=== PATIENT | female | born 1995 | race African-American/Black ===

== ENCOUNTER 2017-08-04 09:29 | Emergency (ER) | payer MEDICAID, OTHER ==
[~2017-08-04] VITALS: Ht 162.6 cm; Wt 56.0 kg
[2017-08-04 09:41] VITALS: BP 121/57; PULSE 87; RESP 20; TEMP 98.1; O2SAT 99
--- NOTE | 2017-08-04 10:21 | PD ---
HPI Chief Complaint: Related Problem Time Seen by Provider: 09:54 Travel History International Travel<30 days: No Contact w/Intl Traveler<30days: No Traveled to known affect area: No History of Present Illness HPI This is a 22-year-old female who presents to the emergency department with brown discharge that started this morning, resolved, mild, with some mild cramping left lower quadrant abdominal pain but no fevers or chills. She is concerned because with her last order she had a short cervix and had to be on bedrest after 6 months. She has had an ultrasound in this which was normal and confirmed IUP. [facility] Past Medical History ?: LMP: APRIL 27, 2017 Social History Alcohol Use: No Tobacco Use: No Allergies-Medications (Allergen,Severity, Reaction): Coded Allergies: No Known Allergies (Unverified , 10/24/14) Review of Systems Except as stated in HPI: all other systems reviewed are Neg Physical Exam Narrative GENERAL:Well appearing, no acute distress SKIN: Focused skin assessment warm and dry. HEAD: Atraumatic. Normocephalic. EYES: Pupils equal and round. No injection or drainage. ENT: Moist mucous membranes NECK: Trachea midline. CARDIOVASCULAR: Regular rate and rhythm. No murmur appreciated. RESPIRATORY: Clear to auscultation. Breath sounds equal bilaterally. GASTROINTESTINAL: Abdomen soft, non-tender, nondistended. : White discharge in the vault with no blood, cervix is normal in appearance MUSCULOSKELETAL: No obvious deformities. NEUROLOGICAL: Awake and alert. No obvious cranial nerve deficits. Moving all extremities. PSYCHIATRIC: Appropriate mood and affect; insight and judgment normal. Data Data Last Documented VS Vital Signs Date Time Temp Pulse Resp B/P (MAP) Pulse Ox O2 Delivery O2 Flow Rate FiO2 08/04/17 10:14 80 18 08/04/17 09:41 98.1 121/57 (78) 99 Orders Orders Ed Poc Ultrasound (08/04/17 ) Wet Prep Profile (08/04/17 10:12) Gc And Chlamydia Pcr (08/04/17 10:12) Labs Laboratory Tests Test 08/04/17 10:22 Clue Cells (Wet Prep) PRESENT Vaginal Trichomonas (Wet Prep) NONE SEEN Vaginal Yeast (Wet Prep) NONE SEEN MDM Medical Decision Making Medical Screen Exam Complete: Yes Emergency Medical Condition: Yes Interpretation(s) Afebrile, no tachycardia, normotensive Clue cells are present Differential Diagnosis Threatened miscarriage, incomplete miscarriage, complete miscarriage, bacterial vaginosis Narrative Course This is a 22-year-old female who presents to the emergency department with some brown vaginal discharge this morning. She has a history of a shortened cervix with her prior . Bedside ultrasound was performed demonstrating an active fetus and a normal pelvic exam was performed which demonstrated no blood but a fair amount of vaginal discharge. Wet prep demonstrates clue cells. Patient will be treated with Flagyl for bacterial vaginosis and has a follow-up appointment with her certified nurse practitioner 2 days from now. I do not think any additional blood work is required as I do not appreciate any blood on the patient's exam her concern seem to be more abnormal discharge. Diagnosis Primary Impression: Bacterial vaginosis Patient Instructions: General Instructions Additional Instructions: If you develop severe abdominal pain, fever, persistent vomiting or inability to eat, heavy vaginal bleeding using more than one pad an hour, lightheadedness , dizziness, chest pain or shortness of breath return to the emergency department immediately. Followup with your certified nurse practitioner as soon as possible. Take Tylenol as needed for pain. Med/Other Pt SpecificInfo: Prescription(s) given Scripts Metronidazole (Flagyl) 500 Mg Tab 500 MG PO BID for Infection for 7 Days, #14 TAB 0 Refills Prov: Alysia Fuentes MD 08/04/17 Disposition: 01 DISCHARGE HOME Condition: Stable Alysia Fuentes MD Aug 04, 2017 10:21
[2017-08-04] MEDS ORDERED: METR-1 PO (11:23)
== END 2017-08-04 11:51 | disposition home or self-care (01) ==
LOC: NEPD 09:29
DX: O23.599 Infection of other part of genital tract in pregnancy, unspecified trimester (principal); N76.0 Acute vaginitis; B96.89 Other specified bacterial agents as the cause of diseases classified elsewhere
CPT/HCPCS: 87210; 99284

== ENCOUNTER 2017-11-11 06:01 | Inpatient (IN) ==
--- NOTE | 2017-11-11 06:58 | ED ---
History of Present Illness Primary Care Physician: No Primary Care Physician History of Present Illness: 22-year-old 2 para 1 at 28 weeks 2 days gestation who thought that she may have been having contractions for the past couple of hours. She denies any bleeding, vaginal discharge or leakage of fluid. Obstetrical history: She had 1 prior term vaginal delivery. During that she was followed for short cervix. She reports that she had ultrasound evaluation of her cervix 22 weeks during this which was reportedly normal. Review of Systems All other systems reviewed negative except as stated in [facility] - History History Provided By: Patient - Medical / Surgical Hx Neg / Unobtainable Medical Problems Denied: Yes Surgical History: No Previous Surgery - Medical History Medical History: Medical History (Last Updated 09/12/17 @ 14:01 by Dayne Gerardo) Patient denies medical problems - Social History I have reviewed the patient's Social History: Yes - Tobacco History Tobacco Use In Past 30 Days: No Smoking Status: Never smoker - Alcohol History How Often Do You Have a Drink Containing Alcohol: Never - Substance Use History Substance History: No History of Abuse - Travel History Recent Travel in the [place] Within the Last 8 Weeks: No Recent Travel Out of the Country Within the Last 8 Weeks: No Medications and Allergies Allergies Allergy/AdvReac Type Severity Reaction Status Date / Time No Known Allergies Allergy Verified 11/11/17 07:10 Home Medications Medication Instructions Recorded Confirmed Type No Known Home Medications 09/12/17 11/11/17 History Exam Vital signs: Vital Signs 11/11/17 06:22 11/11/17 06:25 Temperature 98.3 F Pulse Rate 86 88 Respiratory Rate 18 Blood Pressure 119/62 Narrative: GENERAL: Well-nourished, well-developed patient. SKIN: Warm and dry. HEAD: Normocephalic and atraumatic. EYES: No scleral icterus. No injection or drainage. ENT: No nasal drainage noted. Mucous membranes pink. Airway patent. NECK: Supple, trachea midline. No JVD. CARDIOVASCULAR: Regular rate and rhythm without murmurs, gallops, or rubs. RESPIRATORY: Breath sounds equal bilaterally. No accessory muscle use. ABDOMEN/GI: Abdomen soft, non-tender, bowel sounds present, no rebound, no guarding Gravid to [-] weeks size Fundal Height: [27-] GENITOURINARY: External Genitalia: intact and normal in appearance BUS glands: [neg-] Cervix: [-] Dilatation: [0-] Effacement: [-70] Station: [-3-] Presentation: [-] Membranes: [intact] Uterine Contractions: [irritability/q5-] FHT's: Category: [-1] Baseline: [150s-] Reactive: [-] Variability: [-mod] Decels: [-] EXTREMITIES: No cyanosis or edema. BACK: Nontender without obvious deformity. No CVA tenderness. NEUROLOGICAL: Awake and alert. Motor and sensory grossly within normal limits. Five out of 5 muscle strength in all muscle groups. Normal speech. Results - Labs Group B Strep: UA neg Assessment and Plan - Plan A: 28 wk IUP with ctxs and cervical shortening c/w PTL P: FFN, US for cervical length Addendum: FFN is neg., pt has clearly developed ctx pattern now and cervical length of 13mm with funneling. Prior study in second tri showed 41mm cvx lg. She will be admitted for PTL management. Indocin 50mg given at 910, Mg and steroids ordered. UDS, UA, GC, chlamydia, GBS-pcr Discharge Plan - Discharge Disposition Patient Disposition: 30 Still Patient - Physicians Team ED Provider: Pepe Watts Primary Care Provider: Primary Care Lainey Jarrett
[2017-11-11] MEDS ORDERED: Betamethasone Sod Phos/Acetate Inj 30 MG/5 ML Vial IM ONE (09:45)
--- NOTE | 2017-11-11 09:45 | P.HPOB ---
Patient Name: Maggie De Anda Date of : 89 Patient Status: Observation Attending Provider: Pepe Watts Date: 11/11/17 06:48 Initialization Date: 11/11/17 06:48 History of Present Illness Primary Care Physician: No Primary Care Physician History of Present Illness: 22-year-old 2 para 1 at 28 weeks 2 days gestation who thought that she may have been having contractions for the past couple of hours. She denies any bleeding, vaginal discharge or leakage of fluid. Obstetrical history: She had 1 prior term vaginal delivery. During that she was followed for short cervix. She reports that she had ultrasound evaluation of her cervix 22 weeks during this which was reportedly normal. Review of Systems All other systems reviewed negative [facility] - History History Provided By: Patient - Medical / Surgical Hx Neg / Unobtainable Medical Problems Denied: Yes Surgical History: No Previous Surgery - Medical History Medical History: Medical History (Last Updated 09/12/17 @ 14:01 by Dayne Gerardo) Patient denies medical problems - Social History I have reviewed the patient's Social History: Yes - Tobacco History Tobacco Use In Past 30 Days: No Smoking Status: Never smoker - Alcohol History How Often Do You Have a Drink Containing Alcohol: Never - Substance Use History Substance History: No History of Abuse - Travel History Recent Travel in the [place] Within the Last 8 Weeks: No Recent Travel Out of the Country Within the Last 8 Weeks: No Medications and Allergies Allergies Allergy/AdvReac Type Severity Reaction Status Date / Time No Known Allergies Allergy Verified 11/11/17 07:10 Home Medications Medication Instructions Recorded Confirmed Type No Known Home Medications 09/12/17 11/11/17 History Exam Vital signs: Vital Signs 11/11/17 06:22 11/11/17 06:25 Temperature 98.3 F Pulse Rate 86 88 Respiratory Rate 18 Blood Pressure 119/62 Narrative: GENERAL: Well-nourished, well-developed patient. SKIN: Warm and dry. HEAD: Normocephalic and atraumatic. EYES: No scleral icterus. No injection or drainage. ENT: No nasal drainage noted. Mucous membranes pink. Airway patent. NECK: Supple, trachea midline. No JVD. CARDIOVASCULAR: Regular rate and rhythm without murmurs, gallops, or rubs. RESPIRATORY: Breath sounds equal bilaterally. No accessory muscle use. ABDOMEN/GI: Abdomen soft, non-tender, bowel sounds present, no rebound, no guarding Gravid to [-] weeks size Fundal Height: [27-] GENITOURINARY: External Genitalia: intact and normal in appearance BUS glands: [neg-] Cervix: [-] Dilatation: [0-] Effacement: [-70] Station: [-3-] Presentation: [-] Membranes: [intact] Uterine Contractions: [irritability/q5-] FHT's: Category: [-1] Baseline: [150s-] Reactive: [-] Variability: [-mod] Decels: [-] EXTREMITIES: No cyanosis or edema. BACK: Nontender without obvious deformity. No CVA tenderness. NEUROLOGICAL: Awake and alert. Motor and sensory grossly within normal limits. Five out of 5 muscle strength in all muscle groups. Normal speech. Results - Labs Group B Strep: UA neg Assessment and Plan - Plan A: 28 wk IUP with ctxs and cervical shortening c/w PTL P: FFN, US for cervical length Addendum: FFN is neg., pt has clearly developed ctx pattern now and cervical length of 13mm with funneling. Prior study in second tri showed 41mm cvx lg. She will be admitted for PTL management. Indocin 50mg given at 910, Mg and steroids ordered. UDS, UA, GC, chlamydia, GBS-pcr Discharge Plan - Discharge Disposition Patient Disposition: 30 Still Patient - Physicians Team ED Provider: Pepe Watts Primary Care Provider: Primary Care Physici,Lainey
[2017-11-11 10:41] LABS: Amphetamine Urine With Conf Neg (Neg); Benzodiazepine Urine With Conf Neg (Neg)
[2017-11-11 10:55] LABS: Amphetamine Screen,Urine Neg (Neg); Barbiturate Screen,Urine Neg (Neg); Cannabinoid Screen,Urine Neg (Neg); Cocaine Screen,Urine Neg (Neg)
[2017-11-11] MEDS: Mag Sulf/Water 40 gm/1000 ml 40 GM/1,000 ML BAG IV.CONT SCH (10:57)
[2017-11-11] MEDS ORDERED: MAGNESIUM SULFATE IV.SIG ONE (11:00)
[2017-11-11] MEDS ORDERED: SODIUM CHLOR 0.9% IV.SIG ONE (11:00)
[2017-11-11] MEDS ORDERED: Mag Sulf/Water 4 gm/100 ml 100 ML IV.SIG ONE (11:00)
[2017-11-11 11:24] LABS: Baso % (Auto) 0.2 % (0.0-2.0); Eos % (Auto) 0.6 % (0.0-4.0); Hemoglobin 11.7 gm/dL (11.6-15.3); Lymph # (Auto) 1.1 th/mm3 (1.0-4.8); Lymph % (Auto) 14.3 % (9.0-44.0); Mean Corpuscular HGB Conc 33.4 % (32.0-36.0); Mean Corpuscular Hemoglobin 28.4 pg (27.0-34.0); Mean Platelet Volume 9.9 fL (7.0-11.0); Mono # (Auto) 0.6 th/mm3 (0.0-0.9); Neut # (Auto) 6.1 th/mm3 (1.8-7.7); Neut % (Auto) 77.9 % (16.0-70.0); Platelet Count 139 th/mm3 (150-450); Red Blood Count 4.12 mil/mm3 (4.00-5.30); Red Cell Distribution Width 13.6 % (11.6-17.2); White Blood Count 7.8 th/mm3 (4.0-11.0)
[2017-11-11 11:24] LABS: Opiate Screen,Urine Neg (Neg)
[2017-11-11 11:40] LABS: Anion Gap 7 meq/L (5-15); Blood Urea Nitrogen 8 mg/dL (7-18); Calcium 8.4 mg/dL (8.5-10.1); Carbon Dioxide 24.2 meq/L (21.0-32.0); Chloride 106 meq/L (98-107); Glomerular Filtration Rate Greater Than 89 mL/min (>89); Glucose,Random 77 mg/dL (74-106); Potassium 4.2 meq/L (3.5-5.1); Sodium 137 meq/L (136-145)
[2017-11-11] MEDS: Indomethacin 25 MG Capsule PO SCH ×3 (13:03→21:27)
[2017-11-11] MEDS ORDERED: PENICILLIN POTASSIUM IM ONE (21:28)
[2017-11-11] MEDS ORDERED: Penicillin G Potassium Inj 5,000,000 UNIT in Sodium Chloride 0.9% Inj 100 ML IV.SIG ONE (22:07)
[2017-11-12] MEDS: Indomethacin 25 MG Capsule PO SCH ×4 (00:43→13:02)
[2017-11-12] MEDS ORDERED: Penicillin G Potassium Inj 2,500,000 UNIT in Sodium Chlor 0.9% Inj 100 ML IV.SIG SCH (02:00)
[2017-11-12] MEDS: Penicillin G Potassium Inj 2,500,000 UNIT in Sodium Chlor 0.9% Inj 100 ML IV.SIG SCH ×3 (02:04→09:54)
[2017-11-12] MEDS: Mag Sulf/Water 40 gm/1000 ml 40 GM/1,000 ML BAG IV.CONT SCH (07:11)
--- NOTE | 2017-11-12 09:40 | P.OBANTE ---
Subjective Interval History: 22-year-old female, at 28 weeks 3 days, presents with shortened cervix and labor on 11/11. Patient seen and examined bedside this morning. Patient had 2 contractions overnight spread apart. Her contractions have greatly decreased and her pain has greatly decreased. She no longer feels any abdominal pressure. Denies any leakage of fluid. No vaginal bleeding. Baby is moving. No acute events overnight. Antepartum ROS: Reports: movement normal Denies: New complaints, Loss of fluid, Vaginal bleeding Objective Vital Signs and I&O: Vital Signs 11/11/17 09:40 11/11/17 10:45 11/11/17 11:00 Temperature Pulse Rate 94 H 82 102 H Respiratory Rate 17 16 Blood Pressure 125/88 11/11/17 11:12 11/11/17 11:15 11/11/17 11:45 Temperature Pulse Rate 87 82 Respiratory Rate 16 16 Blood Pressure 106/49 L 113/46 L 11/11/17 13:00 11/11/17 13:20 11/11/17 13:55 Temperature Pulse Rate 85 96 H 105 H Respiratory Rate 17 Blood Pressure 107/45 L 115/62 11/11/17 14:35 11/11/17 15:00 11/11/17 15:18 Temperature 97.9 F Pulse Rate 104 H 105 H 104 H Respiratory Rate 17 17 Blood Pressure 117/69 112/54 L 11/11/17 15:55 11/11/17 16:45 11/11/17 18:00 Temperature Pulse Rate 104 H 107 H 105 H Respiratory Rate 17 Blood Pressure 116/54 L 109/48 L 11/11/17 18:20 11/11/17 18:22 11/11/17 19:30 Temperature Pulse Rate 107 H 105 H Respiratory Rate 16 Blood Pressure 113/43 L 110/50 L 11/11/17 20:55 11/11/17 21:30 11/11/17 22:05 Temperature 97.4 F L Pulse Rate 103 H 104 H 117 H Respiratory Rate 18 Blood Pressure 103/38 L 106/48 L 11/11/17 23:10 11/11/17 23:30 11/12/17 00:45 Temperature 97.7 F Pulse Rate 110 H 109 H Respiratory Rate 18 18 Blood Pressure 113/52 L 105/49 L 11/12/17 01:15 11/12/17 02:00 11/12/17 03:00 Temperature Pulse Rate 100 H 96 H 100 H Respiratory Rate 18 Blood Pressure 104/46 L 105/59 L 110/51 L 11/12/17 04:00 11/12/17 04:05 11/12/17 04:53 Temperature 97.5 F L Pulse Rate 96 H Respiratory Rate 18 18 Blood Pressure 106/44 L 11/12/17 05:20 11/12/17 06:00 11/12/17 07:05 Temperature Pulse Rate 94 H 95 H 94 H Respiratory Rate 18 Blood Pressure 114/51 L 96/39 L 97/39 L 11/12/17 07:10 11/12/17 07:25 11/12/17 07:55 Temperature Pulse Rate 106 H 101 H 102 H Respiratory Rate Blood Pressure 113/49 L 11/12/17 08:25 Temperature Pulse Rate 111 H Respiratory Rate Blood Pressure Intake & Output 11/11/17 11/12/17 11/12/17 18:59 06:59 18:59 Intake Total 1000 / 1000 100 / 100 1000 / 1000 Balance 1000 / 1000 100 / 100 1000 / 1000 Intake: IV 1000 / 1000 100 / 100 1000 / 1000 LR 1000 mL Inj 1,000 ML @ 125 1000 / 1000 mls/hr IV.CONT .Q8H DOYLE Rx#: [id number] Magnesium Sulfate/Water 40 gm/ 1000 / 1000 1000 ml Premix 40 gm In 1,000 ml @ 2 GM/HR 50 mls/hr IV.CONT Q24H DOYLE Rx#:[id number] Pfizerpen-G Inj 2,500,000 UNIT 100 / 100 In NS Inj 100 ML @ 200 mls/hr IV.SIG Q4H DOYLE Rx#:[id number] Lab and Micro Results: Laboratory Results - last 24 hr 11/11/17 11/11/17 11/11/17 06:25 06:25 09:42 WBC 7.8 RBC 4.12 Hgb 11.7 Hct 35.0 MCV 85.0 MCH 28.4 MCHC 33.4 RDW 13.6 Plt Count 139 L MPV 9.9 Neut % (Auto) 77.9 H Lymph % (Auto) 14.3 Barry % (Auto) 7.0 Eos % (Auto) 0.6 Baso % (Auto) 0.2 Neut # (Auto) 6.1 Lymph # (Auto) 1.1 Barry # (Auto) 0.6 Eos # (Auto) 0.0 Baso # (Auto) 0.0 WBC Differential . Differential Comment Auto diff final Sodium Potassium Chloride Carbon Dioxide Anion Gap BUN Creatinine Estimated GFR Random Glucose Calcium Magnesium Urine Opiates Screen Neg Ur Barbiturates Screen Neg Ur Amphetamine Screen Neg Ur Amphetamines Screen U Benzodiazepines Scrn Neg Urine Cocaine Screen Neg U Cannabinoids Screen Neg Chlam trachomat DNA PCR Not detected N.gonorrhoeae DNA (PCR) Not detected Group B Strep (PCR) 11/11/17 11/11/17 11/11/17 09:42 10:20 10:25 WBC RBC Hgb Hct MCV MCH MCHC RDW Plt Count MPV Neut % (Auto) Lymph % (Auto) Barry % (Auto) Eos % (Auto) Baso % (Auto) Neut # (Auto) Lymph # (Auto) Barry # (Auto) Eos # (Auto) Baso # (Auto) WBC Differential Differential Comment Sodium 137 Potassium 4.2 Chloride 106 Carbon Dioxide 24.2 Anion Gap 7 BUN 8 Creatinine 0.50 Estimated GFR Greater than 89 Random Glucose 77 Calcium 8.4 L Magnesium Urine Opiates Screen Neg Ur Barbiturates Screen Neg Ur Amphetamine Screen Ur Amphetamines Screen Neg U Benzodiazepines Scrn Neg Urine Cocaine Screen Neg U Cannabinoids Screen Neg Chlam trachomat DNA PCR N.gonorrhoeae DNA (PCR) Group B Strep (PCR) Positive 11/11/17 15:34 WBC RBC Hgb Hct MCV MCH MCHC RDW Plt Count MPV Neut % (Auto) Lymph % (Auto) Barry % (Auto) Eos % (Auto) Baso % (Auto) Neut # (Auto) Lymph # (Auto) Barry # (Auto) Eos # (Auto) Baso # (Auto) WBC Differential Differential Comment Sodium Potassium Chloride Carbon Dioxide Anion Gap BUN Creatinine Estimated GFR Random Glucose Calcium Magnesium 4.8 H Urine Opiates Screen Ur Barbiturates Screen Ur Amphetamine Screen Ur Amphetamines Screen U Benzodiazepines Scrn Urine Cocaine Screen U Cannabinoids Screen Chlam trachomat DNA PCR N.gonorrhoeae DNA (PCR) Group B Strep (PCR) Physical Exam: General: Well-nourished, well-developed, in no acute distress Skin: Intact, no rash present HEENT: Neck supple, no nodules appreciated Cardio: Regular rate and rhythm, no murmurs Respiratory: Clear to auscultation bilaterally, no wheezing, rales, crackles. Abdominal: Normal bowel sounds, soft, no uterine tenderness, no hardness on palpation EFM: baseline 140, no decelerations, moderate variability toco: no cxns on monitor Assessment and Plan - Diagnosis (1) Short cervical length during Code(s): O26.879 - Cervical shortening, unspecified trimester Status: Acute Plan: Cervical length of 13 mm with funneling, prior study showed 41 mm cervix length second trimester No signs of progressing labor EFM and toco If no further contractions or signs of labor, expect DC with pelvic rest for remainder of (2) contractions Code(s): O47.9 - False labor, unspecified Status: Acute Plan: labor management as below -Indomethacin 50 mg x1 -Indomethacin 25 mg every 4 hours -Terbutaline 0.25 mg subcu x1 -Betamethasone 12 mg every 24 hours, 1 dose completed -Continue magnesium, repleted times 24 hours at 11 AM No contractions overnight no further management needed Continue EFM and toco - Plan 22-year-old female, at 28 weeks 3 days, presents with shortened cervix and labor on 11/11. Discharge Planning: Pending no signs of labor, Will likely DC this afternoon after second dose of betamethasone and magnesium is completed. Case discussed with
[2017-11-12 10:58] VITALS: RESP 17
[2017-11-12] MEDS ORDERED: Betamethasone Sod Phos/Acetate Inj 30 MG/5 ML Vial IM ONE (11:00)
[2017-11-12 13:13] VITALS: TEMP 98.3
[2017-11-12 14:05] VITALS: BP 106/49
[2017-11-12 14:44] VITALS: PULSE 99
== END 2017-11-12 15:17 | disposition home or self-care (01) ==
LOC: H2E 06:01 → HOBED 06:01 → OBSVTOIN 09:15 → H2E 09:37
PROVIDERS: ADMIT Obstetrics & Gynecology; ATTEND Obstetrics & Gynecology

== ENCOUNTER 2018-01-28 06:33 | Inpatient (IN) ==
[2018-01-28] MEDS ORDERED: Naloxone Inj 0.4 MG/ML Vial IV.PUSH PRN ×2 (07:28→22:27)
[2018-01-28] MEDS ORDERED: Sod Chloride 0.9% Inj 1,000 ML IV.CONT PRN (07:28)
[2018-01-28] MEDS ORDERED: Oxytocin 30 Units/500ml Premix 30 UNITS/500 ML BAG IV.SIG ONE (07:28)
[2018-01-28] MEDS ORDERED: fentaNYL Citrate Inj 100 MCG/2 ML Ampul IV.PUSH PRN ×2 (07:28)
[2018-01-28] MEDS ORDERED: Sodium Chlor 0.9% Inj 500 ML IV.SIG PRN (07:28)
[2018-01-28] MEDS ORDERED: Citric Acid/Sodium Citrate Liq 30 ML UDC PO SCH (07:30)
[2018-01-28] MEDS ORDERED: Oxytocin 30 Units/500ml Premix 30 UNITS/500 ML BAG IV.SIG PRN ×2 (07:41→16:39)
[2018-01-28 08:05] LABS: Baso % (Auto) 0.2 % (0.0-2.0); Hematocrit 31.7 % (35.0-46.0); Lymph # (Auto) 1.7 th/mm3 (1.0-4.8); Lymph % (Auto) 34.7 % (9.0-44.0); Mean Corpuscular HGB Conc 34.6 % (32.0-36.0); Mean Corpuscular Hemoglobin 27.6 pg (27.0-34.0); Mean Corpuscular Volume 79.7 fL (80.0-100.0); Mean Platelet Volume 9.8 fL (7.0-11.0); Mono # (Auto) 0.5 th/mm3 (0.0-0.9); Mono % (Auto) 10.8 % (0.0-8.0); Neut # (Auto) 2.7 th/mm3 (1.8-7.7); Neut % (Auto) 53.3 % (16.0-70.0); Platelet Count 108 th/mm3 (150-450); Red Blood Count 3.97 mil/mm3 (4.00-5.30); Red Cell Distribution Width 14.3 % (11.6-17.2)
[2018-01-28 08:07] LABS: Amphetamine Urine With Conf Neg (Neg); Benzodiazepine Urine With Conf Neg (Neg); Bilirubin,Urine Negative (Negative); Clarity,Urine Clear (Clear); Cocaine Urine With Conf Neg (Neg); Color,Urine Yellow (Yellw/Straw); Glucose,Urine (UA) Negative (Negative); Leukocyte Esterase,Urine Negative (Negative); Mucus,Urine Few /lpf (Occasional); Nitrite,Urine Negative (Negative); Opiates Urine With Conf Neg (Neg); Specific Gravity,Urine 1.013 (1.002-1.035); Squamous Epithelial Cell,Urine 3 /hpf (0-5)
[2018-01-28 08:14] LABS: Cannabinoid Urine With Conf Neg (Neg)
[2018-01-28 08:20] LABS: Albumin 3.1 g/dL (3.4-5.0); Anion Gap 10 meq/L (5-15); Aspartate Aminotransferase 15 U/L (15-37); Blood Urea Nitrogen 6 mg/dL (7-18); Calcium 8.7 mg/dL (8.5-10.1); Carbon Dioxide 20.3 meq/L (21.0-32.0); Chloride 109 meq/L (98-107); Glomerular Filtration Rate Greater Than 89 mL/min (>89); Glucose,Random 94 mg/dL (74-106); Potassium 3.9 meq/L (3.5-5.1); Sodium 139 meq/L (136-145)
[2018-01-28 08:25] LABS: Alanine Aminotransferase 13 U/L (10-53); Alkaline Phosphatase 102 U/L (45-117); Total Protein 6.8 g/dL (6.4-8.2)
--- NOTE | 2018-01-28 08:53 | P.HPOB ---
History of Present Illness Primary Care Physician: UNKNOWN Chief Complaint: IOL History of Present Illness: 22 yr old at 39/3 here for induction of labor secondary to gestational diabetes, diet controlled. Pt had a previous history with no issues, delivered vaginal, baby weighted 6lbs. Pt denies medical problems. During this pt had no other complications. Baby's last EFW was 6lbs at 36 WGA. PMH: none PSHx: none Social: denies smoking, nobody smokes in the house, denies drinking, no recreational drug use. Medications: vitamins Allergies: None Weeks Gestation:: 39 Para: 1 : 2 - Inpatient Certification I certify that the inpatient services were ordered in accordance with Medicare regulations governing the order. This includes certification that hospital inpatient services are reasonable and necessary and in the case of services not specified as inpatient-only under 42 CFR 419.22(n), that they are appropriately provided as inpatient services in accordance to with the 2-midnight benchmark under 43 CFR 412.3(e) Estimated Total Length of Stay (Days): 3 Plans for Post Hospital Care: Home Review of Systems Constitutional: Denies headache(s) Cardiovascular: Denies chest pain Respiratory: Denies shortness of breath Genitourinary: Denies urinary urgency, Denies vaginal discharge PMFSH - History History Provided By: Patient - Medical / Surgical Hx Neg / Unobtainable Medical Problems Denied: Yes Surgical History: No Previous Surgery - Medical History Medical History: Medical History (Last Reviewed 01/28/18 @ 08:49 by Mary Anne Thornton MD, R1 ) Gestational diabetes Patient denies medical problems - Family History Family History: Family History (Last Reviewed 01/28/18 @ 08:49 by Mary Anne Thornton MD, R1 ) Other No significant family history - Social History I have reviewed the patient's Social History: Yes - Tobacco History Second Hand Smoke Exposure: No Tobacco Use In Past 30 Days: No Smoking Status: Never smoker - Alcohol History How Often Do You Have a Drink Containing Alcohol: Never - Substance Use History Substance History: No History of Abuse - Travel History Recent Travel in the [facility] Within the Last 8 Weeks: No Recent Travel Out of the Country Within the Last 8 Weeks: No Medications and Allergies Active Medications: Active Medications Citric Acid/Sodium Citrate (Sodium Citrate/Citric Acid Liq) 30 ml PO [facility]PRENT[facility] DOYLE Stop: 02/01/18 07:29 Fentanyl Citrate (Fentanyl Inj) 50 mcg IV.PUSH Q1H PRN PRN Reason: Pain Scale 3 - 5 Fentanyl Citrate (Fentanyl Inj) 100 mcg IV.PUSH Q1H PRN PRN Reason: PAIN SCALE 6 TO 10 Lactated Ringer's (Lr 1000 Ml Inj) 1,000 mls @ 3,000 mls/hr IV.SIG UNSCH PRN PRN Reason: compromise or epidural Lactated Ringer's (Lr 1000 Ml Inj) 1,000 mls @ 125 mls/hr IV.CONT .Q8H DOYLE Last Admin: 01/28/18 07:45 Dose: 125 mls/hr Sodium Chloride (Ns Inj) 500 mls @ 1,000 mls/hr IV.SIG UNSCH PRN PRN Reason: SEE LABEL COMMENTS Sodium Chloride (Ns Inj) 1,000 mls @ 100 mls/hr IV.CONT .Q10H PRN PRN Reason: SEE LABEL COMMENTS Oxytocin (Pitocin 30 Units/Ns 500 Ml Premix) 30 units in 500 mls @ 2 mls/hr IV.SIG TITRATE PRN; Protocol PRN Reason: For induction of labor Last Admin: 01/28/18 07:53 Dose: 2 milliunit/min, 2 mls/hr Lidocaine HCl (Xylocaine 1% Inj) 0.1 ml I-DERMAL PRN PRN PRN Reason: For IV start Stop: 01/31/18 07:27 Lidocaine HCl (Xylocaine 1% Inj) 10 ml INFILTRATN PRN PRN PRN Reason: For episiotomy repair Stop: 01/30/18 07:27 Mineral Oil (Muri-Lube Oil) 10 ml TOPICAL PRN PRN PRN Reason: PRN perineal massage Naloxone HCl (Narcan Inj) 0.1 mg IV.PUSH Q2M PRN PRN Reason: for opiate reversal Allergies Allergy/AdvReac Type Severity Reaction Status Date / Time No Known Allergies Allergy Verified 01/28/18 07:16 Home Medications Medication Instructions Recorded Confirmed Type No Known Home Medications 09/12/17 11/11/17 History 01/28/18 History Exam Vital signs: Vital Signs 01/28/18 06:54 01/28/18 07:15 01/28/18 07:59 Temperature 98.0 F Pulse Rate 74 93 H Respiratory Rate 17 18 Blood Pressure 116/77 108/59 L 01/28/18 08:00 Temperature Pulse Rate Respiratory Rate 17 Blood Pressure Intake & Output 01/27/18 01/28/18 01/28/18 18:59 06:59 18:59 Weight 72.575 kg Narrative: GENERAL: Well-nourished, well-developed patient. SKIN: Warm and dry. HEAD: Normocephalic and atraumatic. EYES: No scleral icterus. No injection or drainage. ENT: No nasal drainage noted. Mucous membranes pink. Airway patent. CARDIOVASCULAR: Regular rate and rhythm without murmurs, gallops, or rubs. RESPIRATORY: Breath sounds equal bilaterally. No accessory muscle use. ABDOMEN/GI: Abdomen soft, non-tender, bowel sounds present, no rebound, no guarding Gravid to 39 weeks size GENITOURINARY: External Genitalia: intact and normal in appearance BUS glands: normal Cervix: anterior Dilatation: 3 cm Effacement: 40-50% Station: -3 Presentation: Vertex Membranes: ruptured Uterine Contractions: present FHT's: Category: 1 Baseline: 140 Reactive: yes Variability: moderate Decels: absent EXTREMITIES: No cyanosis or edema. BACK: Nontender without obvious deformity. No CVA tenderness. NEUROLOGICAL: Awake and alert. Motor and sensory grossly within normal limits. Normal speech. Results - Labs CBC & Chem 7: 01/28/18 07:11 01/28/18 07:11 Labs: Laboratory Results - last 24 hr 01/28/18 01/28/18 01/28/18 06:45 06:45 07:11 WBC 5.0 RBC 3.97 L Hgb 11.0 L Hct 31.7 L MCV 79.7 L MCH 27.6 MCHC 34.6 RDW 14.3 Plt Count 108 L MPV 9.8 Neut % (Auto) 53.3 Lymph % (Auto) 34.7 Buchanan % (Auto) 10.8 H Eos % (Auto) 1.0 Baso % (Auto) 0.2 Neut # (Auto) 2.7 Lymph # (Auto) 1.7 Buchanan # (Auto) 0.5 Eos # (Auto) 0.0 Baso # (Auto) 0.0 WBC Differential . Differential Comment Auto diff final Sodium Potassium Chloride Carbon Dioxide Anion Gap BUN Creatinine Estimated GFR Random Glucose Calcium Total Bilirubin AST ALT Alkaline Phosphatase Total Protein Albumin Urine Color Yellow Urine Clarity Clear Urine pH 6.0 Ur Specific Arley 1.013 Urine Protein Negative Urine Glucose (UA) Negative Urine Ketones Negative Urine Occult Blood Negative Urine Nitrate Negative Urine Bilirubin Negative Urine Urobilinogen Less than 2 Ur Leukocyte Esterase Negative Urine RBC Less than 1 Urine WBC 1 Ur Squamous Epith Cells 3 Urine Mucus Few H Micro UA Comment Culture not ind Ur Microscopic Review Not Reportable Urine Culture Comments Culture not ind Urine Opiates Screen Neg Ur Barbiturates Screen Neg Ur Amphetamine Screen Neg U Benzodiazepines Scrn Neg Urine Cocaine Screen Neg U Cannabinoids Screen Neg Blood Type Blood Type Recheck 01/28/18 01/28/18 07:11 07:11 WBC RBC Hgb Hct MCV MCH MCHC RDW Plt Count MPV Neut % (Auto) Lymph % (Auto) Buchanan % (Auto) Eos % (Auto) Baso % (Auto) Neut # (Auto) Lymph # (Auto) Buchanan # (Auto) Eos # (Auto) Baso # (Auto) WBC Differential Differential Comment Sodium 139 Potassium 3.9 Chloride 109 H Carbon Dioxide 20.3 L Anion Gap 10 BUN 6 L Creatinine 0.70 Estimated GFR Greater than 89 Random Glucose 94 Calcium 8.7 Total Bilirubin 0.5 AST 15 ALT 13 Alkaline Phosphatase 102 Total Protein 6.8 Albumin 3.1 L Urine Color Urine Clarity Urine pH Ur Specific Arley Urine Protein Urine Glucose (UA) Urine Ketones Urine Occult Blood Urine Nitrate Urine Bilirubin Urine Urobilinogen Ur Leukocyte Esterase Urine RBC Urine WBC Ur Squamous Epith Cells Urine Mucus Micro UA Comment Ur Microscopic Review Urine Culture Comments Urine Opiates Screen Ur Barbiturates Screen Ur Amphetamine Screen U Benzodiazepines Scrn Urine Cocaine Screen U Cannabinoids Screen Blood Type AB Positive Blood Type Recheck Required Caprini VTE Risk Assessment Caprini VTE Risk Assessment: No/Low Risk (score <= 1) Caprini Risk Assessment Model: Point Value = 1 Point Value = 2 Point Value = 3 Point Value = 5 Age 41-60 Minor surgery BMI > 25 kg/m2 Swollen legs Varicose veins or History of unexplained or recurrent spontaneous Oral contraceptives or hormone replacement Sepsis (< 1 month) Serious lung disease, including pneumonia (< 1 month) Abnormal pulmonary function Acute myocardial infarction Congestive heart failure (< 1 month) History of inflammatory bowel disease Medical patient at bed rest Age 61-74 Arthroscopic surgery Major open surgery (> 45 min) Laparoscopic surgery (> 45 min) Malignancy Confined to bed (> 72 hours) Immobilizing plaster cast Central venous access Age >= 75 History of VTE Family history of VTE Factor V Leiden Prothrombin [id number] Lupus anticoagulant Anticardiolipin antibodies Elevated serum homocysteine Heparin-induced thrombocytopenia Other congenital or acquired thrombophilia Stroke (< 1 month) Elective arthroplasty Hip, pelvis, or leg fracture Acute spinal cord injury (< 1 month) Prophylaxis Regimen: Total Risk Factor Score Risk Level Prophylaxis Regimen 0-1 Low Early ambulation 2 Moderate Order ONE of the following: *Sequential Compression Device (SCD) *Heparin 5000 units SQ BID 3-4 Higher Order ONE of the following medications: *Heparin 5000 units SQ TID *Enoxaparin/Lovenox 40 mg SQ daily (WT < 150 kg, CrCl > 30 mL/min) *Enoxaparin/Lovenox 30 mg SQ daily (WT < 150 kg, CrCl > 10-29 mL/min) *Enoxaparin/Lovenox 30 mg SQ BID (WT < 150 kg, CrCl > 30 mL/min) AND/OR *Sequential Compression Device (SCD) 5 or more Highest Order ONE of the following medications: *Heparin 5000 units SQ TID (Preferred with Epidurals) *Enoxaparin/Lovenox 40 mg SQ daily (WT < 150 kg, CrCl > 30 mL/min) *Enoxaparin/Lovenox 30 mg SQ daily (WT < 150 kg, CrCl > 10-29 mL/min) *Enoxaparin/Lovenox 30 mg SQ BID (WT < 150 kg, CrCl > 30 mL/min) AND *Sequential Compression Device (SCD) Assessment and Plan - Diagnosis (1) Encounter for induction of labor Code(s): Z34.90 - Encounter for supervision of normal , unspecified, unspecified trimester Status: Acute (2) Gestational diabetes Code(s): O24.419 - Gestational diabetes mellitus in , unspecified control Status: Acute (3) 39 weeks gestation of Code(s): Z3A.39 - 39 weeks gestation of Status: Acute - Plan 22 yr old female admitted for IOL secondary to gestational diabetes. Plan: - Admit to L&D - Pitocin for IOL - Anticipate vaginal delivery Pt seen and discussed with Dr. Swanson and Dr. Márquez
[2018-01-28] MEDS ORDERED: Dextrose 50% in Water 50 ML Vial IV.PUSH PRN (11:23)
[2018-01-28] MEDS ORDERED: fentaNYL 2MCG-Bupiv 0.125% Epi 150 ML EPIDURAL ONE (12:55)
[2018-01-28] MEDS ORDERED: fentaNYL Citrate Inj 100 MCG/2 ML Ampul EPIDURAL ONE (13:32)
[2018-01-28] MEDS ORDERED: fentaNYL 2MCG-Bupiv 0.125% Epi 150 ML EPIDURAL PRN (13:32)
[2018-01-28] MEDS ORDERED: Diphtheria/Tetanus/Pertussis Vaccine Inj 0.5 ML Syringe IM ONE (16:00)
[2018-01-28] MEDS ORDERED: Measles/Mumps/Rubella Vaccine Inj 0.5 ML Vial SQ ONE (16:00)
--- NOTE | 2018-01-28 19:31 | P.OBGPN ---
Earlier patient seen and evaluated this is a late entry- Exam was 6 cm at the time/ position the suture lines are occiput transverse with adequate maternal pelvis, and plan to initiate oxytocin. MD was subsequently called heart rate deceleration noted-when this occurred intrauterine resuscitation Pitocin was turned off which was at 1 milliunit IV fluid resuscitation change of maternal position and a scalp electrode was placed after counseling services manager. status is now found to be reassuring patient has progressed to 7-8 cm. We will continue to monitor maternal status closely. Anticipate
[2018-01-28] MEDS ORDERED: Lidocaine 1% Inj 50 ML Vial ONE (22:00)
[2018-01-28] MEDS ORDERED: Oxytocin 30 Units/500ml Premix 30 UNITS/500 ML BAG IV.CONT PRN (22:27)
[2018-01-28] MEDS ORDERED: Acetaminophen 325 MG Tablet PO PRN (22:27)
[2018-01-28] MEDS ORDERED: Witch Hazel 50%/Glyderin 12.5% 40 Pad Jar RECTAL PRN (22:27)
[2018-01-28] MEDS ORDERED: Bisacodyl 10 MG Supp RECTAL PRN (22:27)
[2018-01-28] MEDS ORDERED: Benzocaine 20% Top Spray 60 ML Can TOPICAL PRN (22:27)
[2018-01-28] MEDS ORDERED: Zolpidem Tartrate 5 MG Tablet PO PRN (22:27)
--- NOTE | 2018-01-28 22:36 | P.OBDELI ---
Weeks Gestation: 39 Patient Started Active Labor: No Medical Induction of Labor: Yes Artificial Rupture of Membrane: Yes Anesthesia: Epidural Episiotomy: none Vaginal Delivery: Normal Presentation: Occiput anterior Nuchal Cord: None Delayed Cord Clamping (45 sec): Yes Placenta: Spontaneous delivery Laceration: None : Female Infant Weight: 3675 kg score (1 min): 8 score (5 min): 9 Additional Information: Delivery of the vertex left hand presenting and below maternal pubis, subsequently rotated vertex after left hand reduced and no longer under maternal pubis hand now facing maternal rectum-with maternal efforts delivery without incident. Cord gases obtained
--- NOTE | 2018-01-29 08:12 | P.PNOB ---
Subjective Interval history: 22 year old female s/p at 39 wks gestation, PPD1. AFVSS. Patient reports she is feeling well. Bleeding is decreasing and pain is well- controlled. She is breast feeding and bonding well with baby. Ambulating without difficulties. She is tolerating a diet without nausea or vomiting. She has not had a bowel movement. She has not passed gas. Denies chest pain, dysuria , shortness of breath, or calf pain. Objective Vital Signs/I&O: Vital Signs 01/28/18 08:30 01/28/18 09:00 01/28/18 09:30 Temperature Pulse Rate Respiratory Rate 17 18 18 Blood Pressure 01/28/18 10:00 01/28/18 10:15 01/28/18 10:56 Temperature 98.3 F Pulse Rate 95 H 84 Respiratory Rate 17 18 Blood Pressure 109/61 117/64 01/28/18 12:10 01/28/18 13:16 01/28/18 13:30 Temperature Pulse Rate 76 107 H 108 H Respiratory Rate 18 Blood Pressure 106/48 L 124/64 113/53 L 01/28/18 13:35 01/28/18 14:10 01/28/18 14:22 Temperature Pulse Rate 96 H 98 H 106 H Respiratory Rate 18 Blood Pressure 123/69 101/58 L 104/54 L 01/28/18 14:30 01/28/18 15:00 01/28/18 16:00 Temperature 97.9 F Pulse Rate 90 98 H 98 H Respiratory Rate Blood Pressure 102/52 L 118/64 123/53 L 01/28/18 16:30 01/28/18 16:38 01/28/18 18:00 Temperature Pulse Rate 91 H 104 H 96 H Respiratory Rate Blood Pressure 107/59 L 121/62 109/69 01/28/18 18:15 01/28/18 19:00 01/28/18 19:10 Temperature Pulse Rate 92 H Respiratory Rate 18 18 Blood Pressure 123/63 01/28/18 19:15 01/28/18 19:30 01/28/18 19:33 Temperature 99.0 F Pulse Rate 96 H Respiratory Rate 18 Blood Pressure 114/66 01/28/18 20:00 01/28/18 20:01 01/28/18 20:42 Temperature Pulse Rate 97 H 99 H Respiratory Rate 18 18 Blood Pressure 122/71 118/69 12/11/18 21:12 01/28/18 21:15 01/28/18 21:32 Temperature 99.4 F Pulse Rate 104 H 105 H Respiratory Rate 18 Blood Pressure 123/61 122/76 01/28/18 22:20 01/28/18 22:31 01/28/18 22:49 Temperature Pulse Rate 109 H 103 H 102 H Respiratory Rate 18 Blood Pressure 119/71 119/73 128/70 01/28/18 23:03 01/28/18 23:05 01/28/18 23:35 Temperature Pulse Rate 98 H 102 H Respiratory Rate 18 18 18 Blood Pressure 127/72 121/62 01/29/18 00:20 01/29/18 07:52 Temperature 97.9 F 97.9 F Pulse Rate 96 H 90 Respiratory Rate 18 20 Blood Pressure 118/69 117/70 Intake & Output 01/28/18 01/29/18 01/29/18 18:59 06:59 18:59 Intake Total 1000 / 1000 Balance 1000 / 1000 Weight 72.575 kg Intake: IV 1000 / 1000 LR 1000 mL Inj 1,000 ML @ 125 1000 / 1000 mls/hr IV.CONT .Q8H [facility] Rx#: [id number] Result Diagrams: 01/28/18 07:11 01/28/18 07:11 Objective Remarks: GENERAL: Well-nourished, well-developed patient. CARDIOVASCULAR: Regular rate and rhythm without murmurs, gallops, or rubs. RESPIRATORY: Breath sounds equal bilaterally. No accessory muscle use. ABDOMEN/GI: Abdomen soft, non-tender, rectus diathesis Fundus: Firm, non-tender at umbilicus. GENITOURINARY: Light to moderate bleeding. EXTREMITIES: No cyanosis or edema, non-tender, without signs of DVT. Medications and IVs: Active Medications Acetaminophen (Tylenol) 650 mg PO Q4H PRN PRN Reason: PAIN SCALE 1 TO 2 Al Hydroxide/Mg Hydroxide (Milk Of Magnesia Liq) 30 ml PO Q12H PRN PRN Reason: Mild Constipation Benzocaine (Americaine 20% Top Malo) 1 spray TOPICAL Q4H PRN PRN Reason: For Perineum Discomfort Bisacodyl (Dulcolax Supp) 10 mg RECTAL DAILY PRN PRN Reason: SEVERE CONSITIPATION Citric Acid/Sodium Citrate (Sodium Citrate/Citric Acid Liq) 30 ml PO TELLER [facility] Stop: 02/01/18 07:29 Dextrose (D50w Vial) 50 ml IV.PUSH UNSCH PRN PRN Reason: PER HYPOGLYCEMIA PROTOCOL Ephedrine Sulfate (Ephedrine/Ns Syringe) 10 mg IV.PUSH UNSCH PRN PRN Reason: SEE LABEL COMMENTS Stop: 01/29/18 13:32 Fentanyl Citrate (Fentanyl Inj) 50 mcg IV.PUSH Q1H PRN PRN Reason: Pain Scale 3 - 5 Fentanyl Citrate (Fentanyl Inj) 100 mcg IV.PUSH Q1H PRN PRN Reason: PAIN SCALE 6 TO 10 Glucagon (Glucagon Inj) 1 mg OTHER PRN PRN PRN Reason: for Hypoglycemia Protocol Lactated Ringer's (Lr 1000 Ml Inj) 1,000 mls @ 3,000 mls/hr IV.SIG UNSCH PRN PRN Reason: compromise or epidural Lactated Ringer's (Lr 1000 Ml Inj) 1,000 mls @ 125 mls/hr IV.CONT .Q8H [facility] Last Admin: 01/28/18 18:26 Dose: 125 mls/hr Sodium Chloride (Ns Inj) 500 mls @ 1,000 mls/hr IV.SIG UNSCH PRN PRN Reason: SEE LABEL COMMENTS Sodium Chloride (Ns Inj) 1,000 mls @ 100 mls/hr IV.CONT .Q10H PRN PRN Reason: SEE LABEL COMMENTS Fentanyl/Bupivacaine/Sodium Chlor (Fentanyl 2 Mcg-Bupiv 0.125% Epi) 150 mls @ 10 mls/hr EPIDURAL PRN PRN PRN Reason: for Labor Pain Last Admin: 01/28/18 13:30 Dose: 10 mls/hr Oxytocin (Pitocin 30 Units/Ns 500 Ml Premix) 30 units in 500 mls @ 1 mls/hr IV.SIG TITRATE PRN; Protocol PRN Reason: For induction of labor Last Admin: 01/28/18 20:19 Dose: 1 milliunit/min, 1 mls/hr Oxytocin (Pitocin 30 Units/Ns 500 Ml Premix) 30 units in 500 mls @ 100 mls/hr IV.CONT UNSCH PRN PRN Reason: Heavy bleeding Ibuprofen (Motrin) 800 mg PO Q8H PRN PRN Reason: For Cramping Last Admin: 01/29/18 02:26 Dose: 800 mg Lactulose (Lactulose Liq) 30 ml PO DAILY PRN PRN Reason: SEVERE CONSITIPATION Lidocaine HCl (Xylocaine 1% Inj) 0.1 ml I-DERMAL PRN PRN PRN Reason: For IV start Stop: 01/31/18 07:27 Lidocaine HCl (Xylocaine 1% Inj) 10 ml INFILTRATN PRN PRN PRN Reason: For episiotomy repair Stop: 01/30/18 07:27 Mineral Oil (Muri-Lube Oil) 10 ml TOPICAL PRN PRN PRN Reason: PRN perineal massage Miscellaneous Information (Misc Information) 1 each OTHER UNSCH PRN PRN Reason: SEE LABEL COMMENTS Stop: 01/29/18 13:32 Miscellaneous Information (Misc Information) 1 each OTHER UNSCH PRN PRN Reason: SEE LABEL COMMENTS Stop: 01/29/18 13:32 Naloxone HCl (Narcan Inj) 0.1 mg IV.PUSH Q2M PRN PRN Reason: for opiate reversal Naloxone HCl (Narcan Inj) 0.1 mg IV.PUSH Q2M PRN PRN Reason: for opiate reversal Ondansetron HCl (Zofran Odt) 4 mg PO Q6H PRN PRN Reason: NAUSEA OR VOMITING Senna/Docusate Sodium (Ree-Colace) 1 tab PO BID DOYLE Sennosides (Senokot) 17.2 mg PO Q12H PRN PRN Reason: Moderate Constipation Sodium Chloride (Ns Flush) 2 ml IV.FLUSH BID DOYLE Sodium Chloride (Ns Flush) 2 ml IV.FLUSH PRN PRN PRN Reason: FLUSH AFTER USING IV ACCESS Witch Daniela/Glycerin (Tucks Pads) 1 applicatio RECTAL QID PRN PRN Reason: HEMORRHOIDS Zolpidem Tartrate (Ambien) 5 mg PO HS PRN PRN Reason: SLEEP Assessment and Plan - Diagnosis (1) Gestational diabetes Code(s): O24.419 - Gestational diabetes mellitus in , unspecified control Status: Acute (2) Vaginal delivery Code(s): O80 - Encounter for full-term uncomplicated delivery Status: Acute - Plan 22 yo female w/ history of gestational diabetes, A1, s/p , PPD 1 - AFVSS - Patient will need fasting glucose due to gestational diabetes - Continue routine care - Motrin PRN pain - Encourage OOB - Pelvic rest x 6 wks. - Contraception: Undecided - Anticipate D/C tomorrow sdw Dr. Zuleta
[2018-01-29] MEDS: Senna/Docusate Sodium 8.6/50 MG Tablet PO SCH (08:31)
[2018-01-30] MEDS: Senna/Docusate Sodium 8.6/50 MG Tablet PO SCH ×2 (08:16→09:04)
--- NOTE | 2018-01-30 09:50 | P.PNOB ---
Subjective Post day: 2 Interval history: day # 2. AFVSS overnight. Pain controlled. Decreased lochia. Denies dysuria. No breast tenderness. She is feeding the baby via breast. Appetite good. No nausea or vomiting. Passed flatus. No bowel movement. Ambulating well. Denies calf pain, shortness of breath, or cough. Otherwise, she is doing well this morning and has no other complaints. Objective Vital Signs/I&O: Vital Signs 01/29/18 20:00 01/30/18 08:00 Temperature 98.0 F 98.2 F Pulse Rate 84 84 Respiratory Rate 18 20 Blood Pressure 114/64 108/65 Result Diagrams: 01/28/18 07:11 01/28/18 07:11 Objective Remarks: GENERAL: Well-nourished, well-developed patient. CARDIOVASCULAR: Regular rate and rhythm without murmurs, gallops, or rubs. RESPIRATORY: Breath sounds equal bilaterally. No accessory muscle use. ABDOMEN/GI: Abdomen soft, non-tender. Protuberant abdomen due to known umbilical hernia and likely separation of rectus muscle. Abdominal binder in place. Fundus: Firm, non-tender at umbilicus. GENITOURINARY: Light to moderate bleeding. EXTREMITIES: +1 edema. No cyanosis or edema, non-tender, without signs of DVT. Medications and IVs: Active Medications Acetaminophen (Tylenol) 650 mg PO Q4H PRN PRN Reason: PAIN SCALE 1 TO 2 Last Admin: 01/30/18 09:05 Dose: 650 mg Al Hydroxide/Mg Hydroxide (Milk Of Magnesia Liq) 30 ml PO Q12H PRN PRN Reason: Mild Constipation Benzocaine (Americaine 20% Top Orange) 1 spray TOPICAL Q4H PRN PRN Reason: For Perineum Discomfort Bisacodyl (Dulcolax Supp) 10 mg RECTAL DAILY PRN PRN Reason: SEVERE CONSITIPATION Citric Acid/Sodium Citrate (Sodium Citrate/Citric Acid Liq) 30 ml PO JACQUARD LOOM CARD [facility] Stop: 02/01/18 07:29 Dextrose (D50w Vial) 50 ml IV.PUSH UNSCH PRN PRN Reason: PER HYPOGLYCEMIA PROTOCOL Fentanyl Citrate (Fentanyl Inj) 50 mcg IV.PUSH Q1H PRN PRN Reason: Pain Scale 3 - 5 Fentanyl Citrate (Fentanyl Inj) 100 mcg IV.PUSH Q1H PRN PRN Reason: PAIN SCALE 6 TO 10 Glucagon (Glucagon Inj) 1 mg OTHER PRN PRN PRN Reason: for Hypoglycemia Protocol Lactated Ringer's (Lr 1000 Ml Inj) 1,000 mls @ 3,000 mls/hr IV.SIG UNSCH PRN PRN Reason: compromise or epidural Lactated Ringer's (Lr 1000 Ml Inj) 1,000 mls @ 125 mls/hr IV.CONT .Q8H [facility]YLE Last Admin: 01/28/18 18:26 Dose: 125 mls/hr Sodium Chloride (Ns Inj) 500 mls @ 1,000 mls/hr IV.SIG UNSCH PRN PRN Reason: SEE LABEL COMMENTS Sodium Chloride (Ns Inj) 1,000 mls @ 100 mls/hr IV.CONT .Q10H PRN PRN Reason: SEE LABEL COMMENTS Fentanyl/Bupivacaine/Sodium Chlor (Fentanyl 2 Mcg-Bupiv 0.125% Epi) 150 mls @ 10 mls/hr EPIDURAL PRN PRN PRN Reason: for Labor Pain Last Admin: 01/28/18 13:30 Dose: 10 mls/hr Oxytocin (Pitocin 30 Units/Ns 500 Ml Premix) 30 units in 500 mls @ 1 mls/hr IV.SIG TITRATE PRN; Protocol PRN Reason: For induction of labor Last Admin: 01/28/18 20:19 Dose: 1 milliunit/min, 1 mls/hr Oxytocin (Pitocin 30 Units/Ns 500 Ml Premix) 30 units in 500 mls @ 100 mls/hr IV.CONT UNSCH PRN PRN Reason: Heavy bleeding Ibuprofen (Motrin) 800 mg PO Q8H PRN PRN Reason: For Cramping Last Admin: 01/30/18 09:04 Dose: 800 mg Lactulose (Lactulose Liq) 30 ml PO DAILY PRN PRN Reason: SEVERE CONSITIPATION Lidocaine HCl (Xylocaine 1% Inj) 0.1 ml I-DERMAL PRN PRN PRN Reason: For IV start Stop: 01/31/18 07:27 Medroxyprogesterone Acetate (Depo-Provera Inj) 150 mg IM ONCE ONE Stop: 01/30/18 09:46 Mineral Oil (Muri-Lube Oil) 10 ml TOPICAL PRN PRN PRN Reason: PRN perineal massage Naloxone HCl (Narcan Inj) 0.1 mg IV.PUSH Q2M PRN PRN Reason: for opiate reversal Naloxone HCl (Narcan Inj) 0.1 mg IV.PUSH Q2M PRN PRN Reason: for opiate reversal Ondansetron HCl (Zofran Odt) 4 mg PO Q6H PRN PRN Reason: NAUSEA OR VOMITING Senna/Docusate Sodium (Ree-Colace) 1 tab PO BID [facility] Last Admin: 01/30/18 09:04 Dose: 1 tab Sennosides (Senokot) 17.2 mg PO Q12H PRN PRN Reason: Moderate Constipation Sodium Chloride (Ns Flush) 2 ml IV.FLUSH BID [facility] Last Admin: 01/30/18 08:16 Dose: Not Given Sodium Chloride (Ns Flush) 2 ml IV.FLUSH PRN PRN PRN Reason: FLUSH AFTER USING IV ACCESS Witch Daniela/Glycerin (Tucks Pads) 1 applicatio RECTAL QID PRN PRN Reason: HEMORRHOIDS Zolpidem Tartrate (Ambien) 5 mg PO HS PRN PRN Reason: SLEEP Assessment and Plan - Diagnosis (1) Gestational diabetes Code(s): O24.419 - Gestational diabetes mellitus in , unspecified control Status: Acute (2) Vaginal delivery Code(s): O80 - Encounter for full-term uncomplicated delivery Status: Acute - Plan 22 yo female w/ history of gestational diabetes, A1, s/p , PPD 2 - AFVSS - Patient will need fasting glucose due to gestational diabetes - Continue routine care - Motrin PRN pain - Encourage OOB - Pelvic rest x 6 wks. - Contraception: Depo shot, ordered today - MI home today Discussed with Dr. Swanson
[2018-01-30] MEDS ORDERED: medroxyPROGESTERone Acetate Inj 150 MG/ML Syringe IM ONE (11:00)
== END 2018-01-30 19:08 | disposition home or self-care (01) ==
LOC: H2E 06:33 → H1EA 01-29 00:13
PROVIDERS: ADMIT Obstetrics & Gynecology Maternal & Fetal Medicine; ATTEND Obstetrics & Gynecology Maternal & Fetal Medicine